=== PATIENT | female | born 1945 | race Caucasian/White ===

== ENCOUNTER 2016-10-22 09:19 | Emergency (ER) | payer MEDICARE, OTHER ==
[2016-10-22 09:28] VITALS: BP 152/75
--- NOTE | 2016-10-22 11:05 | UC ---
Minor Trauma HPI - HPI Summary HPI Summary: 2 days ago fell backward off a 6ft ledge in her yard-she was able to get her self up and continue to work---yesterday she was a bit sore and today the soreness in her back neck and jaw is worse - History of Current Complaint Chief Complaint: UCTrauma Stated Complaint: JAW INJURY Time Seen by Provider: 10/22/16 09:31 Hx Obtained From: Patient ?: No Onset/Duration: Sudden Onset, Lasting Days - 2, Worse Since - this morning Onset Of Pain: Post Accident - and worse 2 days later Severity Initially: Mild Severity Currently: Moderate Pain Intensity: 6 Pain Scale Used: 0-10 Numeric Mechanism Of Injury: Fall From Height Of: - 6 Aggravating Factor(s): Nothing Alleviating Factor(s): Nothing - Allergies/Home Medications Allergies/Adverse Reactions: Allergies Allergy/AdvReac Type Severity Reaction Status Date / Time No Known Allergies Allergy Verified 10/22/16 09:28 PMH/Surg Hx/FS Hx/Imm Hx Previously Healthy: Yes - Surgical History Surgical History: Yes Surgery Procedure, Year, and Place: LT ANKLE ACHILLES TENDON REPLACED 2002, RT KNEE ARTHROSCOPIC, RT WRIST, RT ELBOW ,TONSILS AGE 8, WISDOM TEETH REMOVED,1996 LEFT BREAST BIOPSY - Family History Known Family History: Positive: None - Social History Occupation: Retired Lives: With Family Alcohol Use: Rare Substance Use Type: None Smoking Status (MU): Never Smoked Tobacco Review of Systems Constitutional: Negative Skin: Negative Eyes: Negative ENT: Negative Respiratory: Negative Cardiovascular: Negative Gastrointestinal: Negative Genitourinary: Negative Motor: Negative Neurovascular: Negative Musculoskeletal: Negative, Myalgia - neck and and upper back Neurological: Negative Psychological: Negative All Other Systems Reviewed And Are Negative: Yes Physical Exam Triage Information Reviewed: Yes Appearance: Well-Appearing, No Pain Distress, Well-Nourished Vital Signs: Initial Vital Signs Temp 100.0 F 10/22/16 09:24 Pulse 75 10/22/16 09:24 Resp 18 10/22/16 09:24 BP 152/75 10/22/16 09:24 Pulse Ox 98 10/22/16 09:24 Vital Signs Reviewed: Yes Eye Exam: Normal Eyes: Positive: Conjunctiva Clear ENT Exam: Normal ENT: Positive: Normal ENT inspection, Hearing grossly normal, TMs normal. Negative: Nasal congestion, Nasal drainage, Tonsillar swelling, Tonsillar exudate, Trismus, Muffled/hoarse voice Dental Exam: Normal Neck exam: Normal Neck: Positive: Supple, Nontender, No Lymphadenopathy Respiratory Exam: Normal Respiratory: Positive: Chest non-tender, Lungs clear, Normal breath sounds, No respiratory distress, No accessory muscle use Cardiovascular Exam: Normal Cardiovascular: Positive: RRR, No Murmur, Pulses Normal, Brisk Capillary Refill Musculoskeletal Exam: Normal Musculoskeletal: Positive: Strength Intact, ROM Intact, No Edema Neurological Exam: Normal Neurological: Positive: Alert, Muscle Tone Normal Psychological Exam: Normal Skin Exam: Normal Diagnostics - Laboratory Diagnostic Studies Completed/Ordered: osteopenia, no fx, Minor Trauma Course/Dx - Course Course Of Treatment: ibuprofen, soma, ice, luis exercise, follow with pcp - Differential Dx/Diagnosis Differential Diagnosis/HQI/PQRI: Contusion(s), Dislocation, Sprain, Strain Provider Diagnoses: COntusions, muscle strain Discharge - Discharge Plan Condition: Stable Disposition: HOME Prescriptions: Carisoprodol TAB* [Soma TAB*] 175 - 350 mg PO TID PRN #10 tab MDD 3 PRN Reason: pain Ibuprofen TAB* [Motrin TAB* 600 MG] 600 mg PO Q6H PRN #30 tab PRN Reason: pain Patient Education Materials: Cervical Strain (ED), Muscle Strain (ED), Core Strengthening Exercises (GEN) Referrals: Kaley Naranjo MD [Primary Care Provider] - If Needed
--- NOTE | 2016-10-22 11:31 | RAD ---
HISTORY: Pain after fall COMPARISONS: None VIEWS: 8, Frontal, lateral, open-mouth odontoid, and bilateral oblique views of the cervical spine. FINDINGS: The cervical spine is visualized from the skull base through T1. ALIGNMENT: There is straightening of the normal cervical lordosis. VERTEBRAL BODIES: There is diffuse osteopenia. Is multilevel anterolateral marginal osteophyte formation most pronounced from C3-C4 inferiorly through C6-C7. There is suboptimal visualization of the odontoid process, though this appears intact. There is no appreciable displaced fracture. JOINTS: There is diffuse, extensive uncovertebral and facet osteoarthritic change. There is moderate diffuse neural foraminal narrowing on the oblique views bilaterally. INTERVERTEBRAL DISCS: There is diffuse loss of intervertebral disc height. SOFT TISSUE: The prevertebral soft tissues are normal. OTHER: The skull base is normal. The lung apices are clear. IMPRESSION: OSTEOPENIA. EXTENSIVE DISC DISEASE AND OSTEOARTHRITIS. NO DEFINITE ACUTE OSSEOUS INJURY. IF SYMPTOMS PERSIST, CONSIDER REPEAT IMAGING.
--- NOTE | 2016-10-22 11:31 | RAD ---
HISTORY: Pain after fall COMPARISONS: None VIEWS: 5, frontal, axial, and bilateral oblique views of the mandible FINDINGS: BONE DENSITY: Normal. BONES: There is no displaced fracture. JOINTS: There is no arthropathy. ALIGNMENT: There is no dislocation. SOFT TISSUES: Unremarkable. OTHER FINDINGS: None. IMPRESSION: NO ACUTE OSSEOUS INJURY. IF SYMPTOMS PERSIST, RECOMMEND REPEAT IMAGING.
--- NOTE | 2016-10-22 11:32 | RAD ---
HISTORY: Pain after fall COMPARISONS: None VIEWS: 2, Frontal and lateral views of the thoracic spine. FINDINGS: ALIGNMENT: There is a scoliotic curvature of the spine VERTEBRAL BODIES: There is diffuse osteopenia. There is multilevel anterolateral marginal osteophyte formation. The vertebral bodies are preserved in height. JOINTS: There is osteoarthritis of the costovertebral articulations INTERVERTEBRAL DISCS: There is diffuse loss of intervertebral disc height. SOFT TISSUE: Unremarkable OTHER: The visualized lungs are clear. IMPRESSION: OSTEOPENIA. DEGENERATIVE DISC DISEASE AND OSTEOARTHRITIS.
== END 2016-10-22 11:53 | disposition home or self-care (01) ==
LOC: UCEAST 09:19
DX: S16.1XXA Strain of muscle, fascia and tendon at neck level, initial encounter (principal); W17.89XA Other fall from one level to another, initial encounter; Y93.9 Activity, unspecified; Y92.096 Garden or yard of other non-institutional residence as the place of occurrence of the external cause; M85.88 Other specified disorders of bone density and structure, other site; M51.34 Other intervertebral disc degeneration, thoracic region
CPT/HCPCS: 70110; 72050; 72070; 99202; G0463

== ENCOUNTER 2017-04-28 10:09 | Inpatient (IN) | payer MEDICARE, OTHER ==
--- NOTE | 2017-04-17 18:58 | HP ---
HISTORY AND PHYSICAL: DATE OF OFFICE VISIT: 04/17/17 DATE OF SURGERY: 04/28/17 SURGEON: Shira Cardoso MD * (DICTATED BY ALBIN VILLEDA) PROCEDURE: Left total knee arthroplasty. CHIEF COMPLAINT: Left knee pain. HISTORY OF PRESENT ILLNESS: Ms. De Guzman is a 72-year-old female with complaints of left knee pain secondary to end-stage osteoarthritis. She has failed conservative management and elected to proceed with a left total knee arthroplasty, which is scheduled for 04/28/[address] Cardoso. PAST MEDICAL HISTORY: Hypertension. PAST SURGICAL HISTORY: Tonsillectomy, left knee arthroscopy, right elbow tendon release, left breast biopsy, de Quervain's release, removal of a skin keratosis, and Achilles tendon transfer. CURRENT MEDICATIONS: None. ALLERGIES: PENICILLIN and BAND-AIDS. FAMILY HISTORY: Diabetes and heart disease. SOCIAL HISTORY: She is a 72-year-old female. She lives with her sister. She does not smoke or use drugs. Uses occasional alcohol. REVIEW OF SYSTEMS: A complete 14-point review of systems was reviewed with the patient, it was all negative and noncontributory. PHYSICAL EXAMINATION GENERAL: She is well developed, well nourished, in no acute distress. VITAL SIGNS: She stands 5 feet tall, weighs 153 pounds. Her blood pressure is 157/82, her heart rate is 84. HEENT: Normocephalic, atraumatic. NECK: Supple. No palpable lymph nodes. PULMONARY: The lungs are clear to auscultation bilaterally. CARDIO: Regular rate and rhythm. Strong S1, S2. ABDOMEN: Soft, nontender, and nondistended. MUSCULOSKELETAL: Left lower extremity, the skin is intact. There are no open wounds or abrasions. There is a moderate joint effusion and tenderness over the medial and lateral joint line. 5 to 125 degrees of range of motion with patellofemoral crepitus. 2+ dorsalis pedis pulses. Her lower extremity muscle group strengths were intact at 5/5 and she has intact sensation. NEUROLOGICAL: She is alert and oriented x3. Cranial nerves II through XII are intact. ASSESSMENT AND PLAN: Ms. De Guzman is a 72-year-old female with continued complaints of left knee pain secondary to end-stage osteoarthritis. She has failed conservative management and elected to proceed with a left total knee arthroplasty which is scheduled for 04/28/[address] Cardoso discussed the risks and benefits of the surgery at today's visit and all of her questions were answered. Percocet and Colace were sent to her pharmacy for postoperative pain control. She has elected aspirin twice daily for DVT prophylaxis following the surgery and she will see Dr. Cardoso back in 2 weeks after the surgery. ALBIN VILLEDA [id number]/[facility] #: [id number] MTDD
[~2017-04-28 10:09] MED LIST: Buffered Lidocaine 0.9% SYRIN* 5 ML/SYR SYRINGE INTRADERM ONE; Dexamethasone IV* 4 MG/ML 1 ML (4 MG) IV SLOW PU ONE; Famotidine IV* 10 MG/ML 2 ML (20 mg) IV ONE
[2017-04-28] MEDS ORDERED: Dexamethasone IV* 4 MG/ML 1 ML (4 MG) ONE (10:20)
[2017-04-28] MEDS ORDERED: Famotidine IV* 10 MG/ML 2 ML (20 mg) ONE (10:21)
[2017-04-28] MEDS ORDERED: Buffered Lidocaine 0.9% SYRIN* 5 ML/SYR SYRINGE ONE (10:21)
[2017-04-28] MEDS ORDERED: Clindamycin 900 MG IVPREMIX(* 900 MG/50 ML SDV IV ONE (10:21)
[2017-04-28] MEDS ORDERED: Morphine PF AMP (0.5MG/ML)* 5 MG/10 ML AMP ONE (10:51)
[2017-04-28] MEDS ORDERED: KETAMINE HCL* 50 MG/ML 10 ML VIAL ONE (10:51)
[2017-04-28] MEDS ORDERED: Midazolam* 1 MG/ML 10 ML VIAL (10 MG) ONE (10:51)
[2017-04-28] MEDS ORDERED: Propofol* 10 MG/ML 20 ML BTL IV PUSH ONE (10:52)
[2017-04-28] MEDS ORDERED: Ondansetron INJ* 2 MG/ML VIAL ONE (10:52)
[2017-04-28] MEDS ORDERED: Bupivacaine 0.5% SDV PF* 30 ML VIAL ONE (10:53)
[2017-04-28] MEDS ORDERED: Naloxone* 0.4 MG/ML 1 ML VIAL IV PRN (12:45)
[2017-04-28] MEDS ORDERED: DiMENhydriNATE IV* 50 MG/ML VIAL IV PUSH PRN (12:45)
[2017-04-28] MEDS ORDERED: Nalbuphine* 20 MG/ML 1 ML VIAL IV PRN ×2 (12:45)
[2017-04-28] MEDS ORDERED: Ondansetron INJ* 2 MG/ML VIAL IV PRN (12:45)
[2017-04-28] MEDS ORDERED: oxyCODONE/Acetamin 5/325 MG* TAB PO PRN ×2 (12:45)
[2017-04-28] MEDS ORDERED: Ropivacaine* 300 MG in NS 0.9% 250 ML* 240 ML EPIDURAL SCH (13:00)
[2017-04-28] MEDS ORDERED: Scopolamine 1.5 mg* PATCH TRANSDERM SCH (13:00)
[2017-04-28] MEDS ORDERED: fentaNYL* 50 MCG/ML 2 ML VIAL (100 MCG VIAL) ONE (13:04)
[2017-04-28] MEDS ORDERED: Lidocaine 2% PF * 5 ML VIAL ONE (13:40)
[2017-04-28] MEDS ORDERED: Metoclopramide IV* 5 MG/ML 2 ML VIAL ONE (13:41)
[2017-04-28] MEDS ORDERED: Glycopyrrolate IV* 0.2 MG/ML 1 ML VIAL ONE (13:41)
[2017-04-28] MEDS ORDERED: Acetaminophen TAB* 325 MG PO PRN (14:30)
[2017-04-28] MEDS ORDERED: Polyethylene Glycol 3350* 17 GM PACKET PO PRN (14:30)
[2017-04-28] MEDS ORDERED: diPHENhydraMINE PO* 25 MG PO PRN (14:30)
--- NOTE | 2017-04-28 15:24 | RAD ---
INDICATION: Left knee surgery COMPARISON: February 27, 2017 TECHNIQUE: A portable 2 view examination was performed. FINDINGS: There is left knee arthroplasty. Both femoral and tibial components appear well seated. There is no overlying cooling jacket. A drain is in place. IMPRESSION: POSTOPERATIVE LEFT TOTAL KNEE
[2017-04-28] MEDS ORDERED: Warfarin TAB(*) 6 MG PO ONE (17:30)
[2017-04-28] MEDS: Clindamycin 600 MG IVPREMIX(* 600 MG/50 ML SDV IV SCH (19:59)
[2017-04-28] MEDS: Magnesium Hydroxide LIQ* 30 ML UDC PO SCH (20:00)
[2017-04-28] MEDS: Docusate CAP* 100 MG PO SCH (20:00)
[2017-04-29] MEDS: Clindamycin 600 MG IVPREMIX(* 600 MG/50 ML SDV IV SCH ×2 (03:22→11:58)
[2017-04-29 05:38] LABS: Hematocrit 31 % (35-47); Hemoglobin 10.6 g/dl (12.0-16.0); Mean Platelet Volume 8 um3 (7.4-10.4)
[2017-04-29 05:51] LABS: BUN/Creatinine Ratio 15.5 (8-20); Calcium 8.4 mg/dL (8.6-10.3); EGFR African American 104.7 (>60); EGFR Non-African American 81.4 (>60); Potassium 3.9 mmol/L (3.5-5.0)
[2017-04-29] MEDS ORDERED: HYDROcodone/ACETAMIN 5-325 MG* 1 TAB PO PRN (05:59)
[2017-04-29] MEDS ORDERED: Ondansetron INJ* 2 MG/ML VIAL IV PRN (06:00)
[2017-04-29] MEDS ORDERED: oxyCODONE/Acetamin 5/325 MG* TAB PO PRN ×2 (06:00)
[2017-04-29] MEDS ORDERED: Morphine INJ* 4 MG/ML 1 ML CARPUJECT IV PRN (06:00)
[2017-04-29] MEDS ORDERED: oxyCODONE TAB* 5 MG TAB PO PRN (06:00)
[2017-04-29] MEDS: HYDROcodone/ACETAMIN 5-325 MG* 1 TAB PO PRN ×3 (06:03→20:43)
--- NOTE | 2017-04-29 06:35 | OP ---
OPERATIVE REPORT: DATE OF OPERATION: 04/28/17 DATE OF : 49 ATTENDING SURGEON: Gregoria Cardoso MD JDE DEVELOPER: ALBIN Sloan Mr. Franks did help throughout the procedure with preparation of the leg, wound retraction, manipulat ion of the knee, and wound closure. ANESTHESIOLOGIST: Dr. Talley. ANESTHESIA: Spinal. PRE-OP DIAGNOSIS: Severe end-stage degenerative osteoarthritis of the left knee joint. POST-OP DIAGNOSIS: Severe end-stage degenerative osteoarthritis of the left knee joint. OPERATIVE PROCEDURE: Left total knee arthroplasty. TOURNIQUET TIME: 43 minutes. ESTIMATED BLOOD LOSS: 300 cc. COMPLICATIONS: None. SPECIMENS: Bone and cartilage from the left knee joint sent to Pathology. HARDWARE: All hardware was cemented [employer] total knee hardware. Two packages of Simplex b one cement. For the femur, a size 4 left posterior stabilized Legion femoral component. For the tib ia, a size 3 left Magalys II tibial base plate. For the insert, a 9 mm posterior stabilized articula r insert size 3-4, and for the patellar, a 32-mm 3-peg all poly patella thickness 7.5. BRIEF HISTORY/INDICATIONS: Ms. De Guzman is a 72-year-old female with years of increasingly severe left knee pain. Radiographs showed bone on bone arthritis. She failed conservative treatment with antiin flammatories, pain medications, physical therapy, and intraarticular injections. Due to continued pa in and decreased quality of life, she elected to undergo a left total knee arthroplasty. Informed con sent was obtained from the patient. She understood the risks of surgery included but were not limite d to bleeding, infection, damage to nearby structures, continued pain, need for further surgery, intr aoperative fracture, nerve palsy, hardware failure or loosening, knee stiffness, loss of motion, stro ke, heart attack, blood clot, and . She wished to proceed. INTRAOPERATIVE FINDINGS: Intraoperatively, the patient is noted to have severe end- stage arthritis in a tricompartmental fashion. There was complete loss of cartilage in all 3 compartments. DESCRIPTION OF PROCEDURE: Ms. De Guzman was identified in the preanesthesia unit. Her left lower extrem ity was marked as the correct operative site. Informed consent was signed and placed in the chart. The patient was taken to the operating room and placed under spinal anesthesia. A Trevizo catheter was placed. Tourniquet was placed on the left thigh. Left lower extremity was prepped and draped in th e usual sterile fashion. Preop time-out was made to correctly identify the patient side and site. A ppropriate perioperative antibiotics were given within 1 hour of incision. Tourniquet was inflated and a midline incision of 12 cm was made with a 10-blade. A new 10-blade was used to make a standard medial parapatellar arthrotomy. The patella was subluxed laterally. Electro cautery was used to subperiosteally elevate soft tissue off the superomedial tibia to the mid sagitta l plane. The knee was flexed up. The anterior horn of the lateral meniscus and ACL were sharply rel eased. A drill was used to enter the distal femur. Intramedullary distal femoral cutting guide was pinned on the distal femur. Oscillating saw was used to make the appropriate distal femoral cut. Ex ternal rotation guide was pinned on the distal femur. Distal femur was sized to a size 4. Size 4 mu lti cutting jig was pinned on the distal femur. Oscillating saw was used to make the appropriate 4 c hamfer cuts. The PCL was completely released. The tibia was subluxed anteriorly. Extramedullary tibial cutting gu romario was pinned on the proximal tibia. Oscillating saw was used to make a proximal tibial cut perpend icular to the mechanical axis of the tibia. The bone was carefully removed. The knee was brought ou t into full extension. Medial and lateral ligaments were well balanced. The spacer block had good fit. Flexion and extension gaps were well balanced. The knee was flexed up. Lamina guard captain was placed both medially and laterally. Any remaining menisc us was carefully removed using electrocautery. Curved osteotome was used to remove any posterior ost eophytes. Tibial tray and drop rods were placed to once again confirm a satisfactory tibial cut. Th is was confirmed. A size 4 left femoral trial was impacted on to the distal femur. Box cut osteotome and reamer were u sed to carefully remove bone for the posterior stabilized implant. A size 3 tibial tray and a 9-mm in sert trial were placed. The knee was taken through a range of motion. The knee had full extension t o 130 degrees of flexion with satisfactory patellofemoral tracking. The patella was everted. 7 mm of patellar bone and cartilage was carefully removed from the patella. The three peg holes were drilled through the size 32 guide. Trial 32 patellar was placed and the kn ee was taken through a range of motion. Patellofemoral tracking was satisfactory. All trials were carefully removed. The tibia was subluxed anteriorly and sized to a size 3. Proxima l tibia was prepared using a size 3 keel punch. All bony cut surfaces were copiously irrigated with sterile saline and dried. Final implants were cemented into place starting with the tibia followed b y the femur and last the patella. A 9-mm insert trial was placed and the knee was taken out into ful l extension. Cement was allowed to fully cure and tourniquet was turned down at 43 minutes. The kne e was copiously irrigated with sterile saline. Electrocautery was used to obtain meticulous hemostas is. The cement was allowed to fully cured. The insert trial was removed. Any cement around the implants or capsule was removed. A 9-mm posterior stabilized articular insert size 3-4 was locked into posit ion on the tibial tray. The stability was checked and rechecked and noted to be stable. The knee was once again copiously irrigated with sterile saline. The extensor mechanism was closed u sing interrupted #1 Vicryl over a medium Hemovac drain. The rest of the incision was closed in a lay ered fashion using 0 and 2-0 Vicryls. The skin was closed using running 3-0 nylon suture. Sterile X eroform, 4x4s, and Webril were used to cover the incision. Pradeep wrap and cold pack were placed over t his. The patient's anesthesia was reversed without difficulty. She was taken to the PACU in stable c ondition. Intended weight bearing will be weight bearing as tolerated. Intended DVT prophylaxis manuel l be Coumadin with a Lovenox bridge. [id number]/[facility] #: [id number]
[2017-04-29] MEDS: Magnesium Hydroxide LIQ* 30 ML UDC PO SCH ×2 (08:45→20:46)
[2017-04-29] MEDS: Docusate CAP* 100 MG PO SCH ×2 (08:45→20:46)
[2017-04-29] MEDS: Enoxaparin(*) 30 MG/0.3 ML SYR SUBCUT SCH (08:46)
[2017-04-29] MEDS: Morphine TAB Extended Release (*) 15 MG TAB.ER PO SCH ×2 (09:56→22:09)
--- NOTE | 2017-04-29 09:57 | PN ---
Progress Note - Progress Note Date of Service: 04/29/17 SOAP: Subjective: Pt. is alert, reports severe pain. Objective: LLE - drain removed, tip intact, distally nvi. Vital Signs: Temp Pulse Resp BP Pulse Ox 97.4 F 79 18 132/73 100 04/29/17 03:51 04/29/17 03:51 04/29/17 08:45 04/29/17 03:51 04/29/17 03:51 Laboratory Results - last 24 hr 04/29/17 04/29/17 04/29/17 05:17 05:17 05:17 Hgb 10.6 L Hct 31 L Plt Count 268 MPV 8 INR (Anticoag Therapy) 1.22 H Sodium 130 L Potassium 3.9 Chloride 97 L Carbon Dioxide 28 Anion Gap 5 BUN 11 Creatinine 0.71 Est GFR ( Amer) 104.7 Est GFR (Non-Af Amer) 81.4 BUN/Creatinine Ratio 15.5 Glucose 111 H Calcium 8.4 L Assessment: 72 yo F pod 1 s/p LTKA Plan: ER morphine 15 mg bid added for pain control wbat pt/ot 6 mg coumadin tonight, lovenox today plan d/c to home monday with snf
[2017-04-29] MEDS ORDERED: Warfarin TAB(*) 6 MG PO SCH (17:00)
[2017-04-29] MEDS: Aspirin TAB* 325 MG PO SCH (20:44)
[2017-04-30] MEDS: HYDROcodone/ACETAMIN 5-325 MG* 1 TAB PO PRN ×2 (04:37→14:42)
[2017-04-30 06:26] LABS: Hematocrit 29 % (35-47); Hemoglobin 9.9 g/dl (12.0-16.0); Mean Platelet Volume 8 um3 (7.4-10.4)
--- NOTE | 2017-04-30 08:53 | PN ---
Progress Note - Progress Note Date of Service: 04/30/17 SOAP: Subjective: Pt. is alert, pain controlled, wants to go home today. Objective: LLE - dressing changed, inc c/d/i. distally nvi. Vital Signs: Temp Pulse Resp BP Pulse Ox 97.2 F 60 18 127/67 96 04/30/17 04:11 04/30/17 04:11 04/30/17 07:07 04/30/17 04:11 04/30/17 07:07 Laboratory Results - last 24 hr 04/30/17 04/30/17 06:05 06:05 Hgb 9.9 L Hct 29 L Plt Count 220 MPV 8 INR (Anticoag Therapy) 1.32 H Assessment: 72 yo F pod 2 s/p LTKA Plan: wbat lle pt/ot home on ecasa bid 325 lovenox today before d/c plan d/c today with vns
[2017-04-30] MEDS: Morphine TAB Extended Release (*) 15 MG TAB.ER PO SCH (09:13)
[2017-04-30] MEDS: Aspirin TAB* 325 MG PO SCH (09:13)
[2017-04-30] MEDS: Docusate CAP* 100 MG PO SCH (09:13)
[2017-04-30] MEDS: Enoxaparin(*) 30 MG/0.3 ML SYR SUBCUT SCH (09:14)
[2017-04-30] MEDS: Magnesium Hydroxide LIQ* 30 ML UDC PO SCH (09:14)
[2017-04-30 11:40] VITALS: BP 123/56
[2017-05-01] MEDS ORDERED: Scopolamine PATCH Remove* 1 NOTE MISC PATCH OFF ONE (12:49)
== END 2017-04-30 14:45 | disposition home or self-care (01) | DRG 470 ==
LOC: AA 10:09 → SSU 17:03
PROVIDERS: ADMIT Orthopaedic Surgery Adult Reconstructive Orthopaedic Surgery; ATTEND Orthopaedic Surgery Adult Reconstructive Orthopaedic Surgery
PROC: 0SRD0J9 Replacement of Left Knee Joint with Synthetic Substitute, Cemented, Open Approach (ICD-10-PCS; principal; 2017-04-28 11:15)
DX: M17.12 Unilateral primary osteoarthritis, left knee (principal); I10 Essential (primary) hypertension; Z88.0 Allergy status to penicillin; Z91.048 Other nonmedicinal substance allergy status; Z83.3 Family history of diabetes mellitus; Z82.49 Family history of ischemic heart disease and other diseases of the circulatory system
CPT/HCPCS: 36415; 80048; 85014; 85018; 85049; 85610; A9270-GY; C1776; J1100; J1650; J2250; J2270; J2405; J2704; J2765; J2795; J3010

== ENCOUNTER 2017-12-05 13:00 | Inpatient (IN) | payer MEDICARE, OTHER ==
--- NOTE | 2018-03-07 16:16 | HP ---
AMENDED REPORT NOW INCLUDES DESIGNATED COSIGNER HISTORY AND PHYSICAL: DATE OF ADMISSION/SURGERY: 03/20/18 DATE OF OFFICE VISIT: 03/07/18 SURGEON: Gregoria Cardoso MD * (DICTATED YBALBIN FERRER) PROCEDURE: Right total knee arthroplasty. CHIEF COMPLAINT: Right knee pain. HISTORY OF PRESENT ILLNESS: Ms. De Guzman is a 73-year-old female with end-stage osteoarthritis of the right knee. She has failed conservative treatment and elected to proceed with a right total knee arthroplasty, which is scheduled for 03/20/18. PAST MEDICAL HISTORY: Hypertension. PAST SURGICAL HISTORY: Tonsillectomy, right knee arthroscopy, right elbow surgery, breast biopsy, right wrist de Quervain's release, Achilles tendon transfer left lower extremity and a left total knee arthroplasty. CURRENT MEDICATIONS: Losartan potassium 25 mg daily. ALLERGIES: To CLINDAMYCIN causing a rash, MELOXICAM, and PENICILLIN. FAMILY HISTORY: Dementia. SOCIAL HISTORY: She is a 73-year-old female. She lives with her sister. She does not smoke or use drugs. Uses occasional alcohol. REVIEW OF SYSTEMS: A complete 14-point review of systems was reviewed with the patient. It was all negative or noncontributory. PHYSICAL EXAMINATION GENERAL: She is well developed, well nourished, in no acute distress. VITAL SIGNS: She stands 5 feet tall, weighs 160 pounds. Her blood pressure is 140/88 and her heart rate is 96. HEENT: Normocephalic, atraumatic. NECK: Supple. No palpable lymph nodes. PULMONARY: The lungs are clear to auscultation bilaterally. CARDIO: Regular rate and rhythm. Strong S1, S2. ABDOMEN: Soft, nontender, nondistended. MUSCULOSKELETAL: Right lower extremity: The skin is intact. There are no open wounds or abrasions. She has a moderate joint effusion, some tenderness over the medial and lateral joint line. Range of motion is 5 to 130 degrees. She is distally neurovascularly intact. ASSESSMENT AND PLAN: Ms. De Guzman is a 73-year-old female with end-stage osteoarthritis of the right knee. She has failed conservative treatment and elected to proceed with a right total knee arthroplasty, which is scheduled for 03/20/[address] Cardoso discussed the risks and benefits of the surgery at today's visit and all of her questions were answered. She will follow up with Dr. Cardoso 2 weeks after the surgery. ALBIN VILLEDA [id number]/[facility] #: [id number] MTDCristi
[2018-03-19] MEDS ORDERED: Buffered Lidocaine 0.9% SYRIN* 5 ML/SYR SYRINGE INTRADERM ONE (11:45)
[2018-03-20] MEDS ORDERED: Tranexamic Acid 1,000 MG in NS 0.9% 50 ML* (outpatient use) IV SCH ×2
[2018-03-20] MEDS ORDERED: Famotidine IV* 10 MG/ML 2 ML (20 mg) IV ONE (06:00)
[2018-03-20] MEDS ORDERED: Dexamethasone IV* 4 MG/ML 1 ML (4 MG) IV SLOW PU ONE (06:00)
--- OUTSIDE RECORDS SUMMARY | 2018-03-20 12:38 | XMS REPORT ---
:1945 External Reference #:[id number] Author Organization [employer] Address [address] [place] [address] Phone [phone] Care Team Providers Name Role Phone Kaley Naranjo MD Primary Care Physician Unavailable Payers Type Date Identification Numbers Payment Provider Subscriber Medicare Primary Effective: Policy Number: Medicare Marian Hernandez 2012 [id number] PayID: [id number] [address] [place] [address] Medigap Part B Policy Number: [id number] [employer] Marian Hernandez Group Number: [id number] [address] PayID: [id number] [place] [address] Problems Date Description Provider Status Onset: 02/27/2017 Localized, primary osteoarthritis Gregoria Cardoso M.D. Active Onset: 09/06/2017 Arthroplasty of knee Gregoria Cardoso M.D. Active Onset: 09/06/2017 Sprain of medial collateral ligament of Gregroia Cardoso M.D. Active knee Family History Date Family Member(s) Problem(s) Comments General No Current Problems Social History Type Date Description Comments Lives With siblings Occupation Retired Smoking Patient has never smoked Allergies, Adverse Reactions, Alerts Date Description Reaction Status Severity Comments 02/27/2017 Penicillin active 02/27/2017 Bandaids active 10/31/2017 Clindamycin active Moderate red, itchy rash 01/31/2018 Meloxicam active Medications Medication Date Status Form Strength Qnty SIG Indications Ordering Provider Losartan 00/00/ Active Tablets 25mg Take 1 Unknown Potassium 0000 Tablet By Mouth Every Day Ibuprofen 200 05/10/ Hx Tablets 200mg 120tab 400mg Donell 2018 - s every 6 Keon, 01/30/ hours as M.D. 2018 needed for pain. Meloxicam 09/06/ Hx Tablets 15mg 30tabs 1 by Z47.1 Gregoria 2017 - mouth Walker, 10/03/ every M.D. 2018 day Gabapentin 05/17/ Hx Capsules 300mg 30caps 1 tab by M25.562 Gregoria 2017 - mouth Walker, 09/05/ before M.D. 2018 bed Ibuprofen 05/05/ Hx Tablets 600mg 90tabs take 1 Gregoria 2016 - tab by Walker, 09/05/ mouth M.D. 2017 with food 3 times a day as needed pain Cyclobenzaprine 05/05/ Hx Tablets 10mg 90tabs take 1 Gregoria HCL 2016 - tab by Walker, 09/05/ mouth M.D. 2018 2-3 times a day as needed [place] 04/30/ Hx Tablets 5-325mg 60tabs 1 by Gregoria 2016 - mouth Walker, 10/03/ every 4 M.D. 2018 to 6 hours as needed MS Contin 04/30/ Hx Tablets ER 15mg 14tabs 1 by Gregoria 2016 - mouth Walker, 09/05/ twice a M.D. 2018 day Percocet 04/17/ Hx Tablets 5-325mg 90tabs 1-2 by Gregoria 2016 - mouth Walker, 04/30/ every M.D. 2017 4-6 hours as needed pain Colace 04/17/ Hx Capsules 100mg 90caps 1 tab by Gregoria 2016 - mouth Walker, 09/05/ 2-3 M.D. 2018 times a day as needed No Active Hx Unknown Medications 2016 - 2016 Compression 02/27/ Hx Misc 1units - M79.605 Gregoria Stockings 2016 - lle Walker, 03/28/ swelling M.D. 2016 /edema s/p L swelling - need thigh high No Active 02/27/ Hx Unknown Medications 2016 - 2016 Aspirin / Hx Unknown - 2016 Advil / Hx Unknown - 2016 Aspirin / Hx Unknown 0000 - 2017 Cozaar / Hx Unknown 0000 - 2017 Cay[place] / Hx Unknown - 2017 Lisinopril / Hx Unknown - 2017 Vital Signs Date Vital Result Comment 03/07/2018 Height 60 inches 5'0" Weight 161.00 lb Heart Rate 96 /min BP Systolic 140 mmHg BP Diastolic 88 mmHg BMI (Body Mass Index) 31.4 kg/m2 01/31/2018 Height 60 inches 5'0" Weight 152.00 lb Heart Rate 68 /min BP Systolic 176 mmHg BP Diastolic 90 mmHg BMI (Body Mass Index) 29.7 kg/m2 10/18/2017 Height 61 inches 5'1" Weight 149.00 lb Heart Rate 80 /min BP Systolic 149 mmHg BP Diastolic 90 mmHg BMI (Body Mass Index) 28.2 kg/m2 10/04/2017 Height 60 inches 5'0" Weight 149.00 lb BP Systolic 162 mmHg BP Diastolic 98 mmHg Body Temperature 98.5 F BMI (Body Mass Index) 29.1 kg/m2 09/06/2017 Height 60 inches 5'0" Weight 155.00 lb BP Systolic 158 mmHg BP Diastolic 98 mmHg Body Temperature 98.0 F BMI (Body Mass Index) 30.3 kg/m2 07/26/2017 Height 60 inches 5'0" Weight 152.00 lb BP Systolic 132 mmHg BP Diastolic 82 mmHg Respiratory Rate 16 /min Pain Level 4 BMI (Body Mass Index) 29.7 kg/m2 06/14/2017 Height 60 inches 5'0" Weight 150.00 lb Heart Rate 81 /min BP Systolic 185 mmHg BP Diastolic 85 mmHg Respiratory Rate 16 /min BMI (Body Mass Index) 29.3 kg/m2 05/17/2017 Height 60 inches 5'0" Weight 152.00 lb per pt Heart Rate 82 /min reg BP Systolic Sitting 170 mmHg Lue, reg cuff BP Diastolic Sitting 100 mmHg Lue, reg cuff Respiratory Rate 16 /min Pain Level 4 left knee BMI (Body Mass Index) 29.7 kg/m2 05/09/2017 Height 60 inches 5'0" Weight 152.00 lb Heart Rate 62 /min Respiratory Rate 15 /min Body Temperature 97.6 F Pain Level 2 BMI (Body Mass Index) 29.7 kg/m2 05/05/2017 Height 60 inches 5'0" Weight 152.00 lb BP Systolic 140 mmHg BP Diastolic 84 mmHg Body Temperature 97.8 F BMI (Body Mass Index) 29.7 kg/m2 04/17/2017 Height 60 inches 5'0" Weight 153.00 lb Heart Rate 84 /min BP Systolic 157 mmHg BP Diastolic 82 mmHg Body Temperature 98.3 F BMI (Body Mass Index) 29.9 kg/m2 03/29/2017 Height 61.5 inches 5'1.50" Weight 152.00 lb BP Systolic 158 mmHg BP Diastolic 82 mmHg Body Temperature 97.7 F BMI (Body Mass Index) 28.3 kg/m2 03/15/2017 Height 61 inches 5'1" Weight 152.00 lb Heart Rate 77 /min BP Systolic 181 mmHg BP Diastolic 92 mmHg BMI (Body Mass Index) 28.7 kg/m2 02/27/2017 Height 61 inches 5'1" Weight 150.00 lb Heart Rate 76 /min BP Systolic 143 mmHg BP Diastolic 92 mmHg Body Temperature 97.8 F Pain Level 8 BMI (Body Mass Index) 28.3 kg/m2 Results Test Date Test Result H/L Range Note CBC No Diff 04/17/2017 White Blood Count 8.4 10^3/uL 3.5-10.8 Red Blood Count 4.67 10^6/uL 4.0-5.4 Hemoglobin 13.9 g/dL 12.0-16.0 Hematocrit 41 % 35-47 Mean Corpuscular Volume 89 fL 80-97 Mean Corpuscular Hemoglobin 30 pg 27-31 Mean Corpuscular HGB Conc 34 g/dL 31-36 Red Cell Distribution Width 15 % 10.5-15 Platelet Count 239 10^3/uL 150-450 Mean Platelet Volume 9 um3 7.4-10.4 Urinalysis Profile 04/17/2017 Urine Color Yellow Urine Appearance Clear Urine Specific [place] 1.015 1.010-1.030 Urine pH 5.0 5-9 Urine Urobilinogen Negative Negative Urine Ketones Trace Negative Urine Protein Negative Negative Urine Leukocytes Negative Negative Urine Blood Negative Negative Urine Nitrite Negative Negative Urine Bilirubin Negative Negative Urine Glucose Negative Negative Type & Screen 04/17/2017 Patient Blood Type A Positive Antibody Screen NEGATIVE Comp Metabolic Panel 04/17/2017 Sodium 137 mmol/L 133-145 Potassium 3.9 mmol/L 3.5-5.0 Chloride 101 mmol/L 101-111 Co2 Carbon Dioxide 28 mmol/L 22-32 Anion Gap 8 mmol/L 2-11 Glucose 87 mg/dL 70-100 Blood Urea Nitrogen 15 mg/dL 6-24 Creatinine 0.76 mg/dL 0.51-0.95 BUN/Creatinine Ratio 19.7 8-20 Calcium 9.2 mg/dL 8.6-10.3 Total Protein 7.7 g/dL 6.4-8.9 Albumin 4.3 g/dL 3.2-5.2 Globulin 3.4 g/dL 2-4 Albumin/Globulin Ratio 1.3 1-3 Total Bilirubin 0.50 mg/dL 0.2-1.0 Alkaline Phosphatase 77 U/L 34-104 Alt 16 U/L 7-52 Ast 19 U/L 13-39 Egfr Non- 75.2 >60 Egfr 96.8 >60 1 Laboratory test finding 04/17/2017 TSH (Thyroid Stim 2.72 mcIU/mL 0.34- 5.60 Horm) Inr/Protime 04/17/2017 Inr 0.94 0.77-1.02 2 Laboratory test finding 04/17/2017 Partial Thrombo 30.5 seconds 26.0- 36.3 Time PTT Urine Culture And 04/17/2017 Urine Culture SEE RESULT BELOW 3 Sensitivities 1 Because ethnic data is not always readily available, this report includes an eGFR for both -Americans and non- Americans. The National Kidney Disease Education Program (NKDEP) does not endorse the use of the MDRD equation for patients that are not between the ages of 18 and 70, are , have extremes of body size, muscle mass, or nutritional status, or are non- or non-. According to the National Kidney Foundation, irrespective of diagnosis, the stage of the disease is based on the level of kidney function: Stage Description GFR(mL/min/1.73 m(2)) 1 Kidney damage with normal or decreased GFR 90 2 Kidney damage with mild decrease in GFR 60-89 3 Moderate decrease in GFR 30-59 4 Severe decrease in GFR 15-29 5 Kidney failure <15 (or dialysis) 2 Please note the change in INR reference range effective 17. 3 SEE RESULT BELOW Name: MARIAN HERNANDEZ : [address]: Gregoria Cardoso MD Acct: [id number] Unit: [id number] AGE: 72 Location: PAT Re04/17/17 SEX: F Status: REG REF SPEC: [id number] [place]: 04/17/17-[address] [facility] [address]: Gregoria Cardoso MD REQ: [id number] RECD: 04/17/17 STATUS: COMP _ SOURCE: URINE SPDESC: ORDERED: Urine Culture QUERIES: Urine Source: Clean Catch Procedure Result Reported Site Urine Culture Final 04/19/17- 0907 ML No growth of clinically significant organisms * ML - MAIN LAB ([facility]) . END OF REPORT * ML=Testing performed at Main Lab DEPARTMENT OF PATHOLOGY, [address] [place] [address] Sahlom Quach M.D. Director [facility] # [id number] Procedures Date CPT Code Description Status Comment 04/28/2017 34083 TKR Total Knee Replacement Completed 04/28/2017 69716 TKR Total Knee Replacement Completed 04/17/2017 62762 EKG, Interpretation Only Completed 01/08/2013 11300 Rad Exam; Wrist, Comp, Min 3 Views Completed LT Encounters Type Date Location Provider CPT E/M Dx Office Visit 01/31/2018 [facility] Gregoria Cardoso M.D. 07866 M25.561 10:30a Of Amanda M25.461 M17.11 Office Visit 10/18/2017 10:00a [facility] Cardoso M.D. 17852 M25.561 C.MMarieAMarie M25.461 M17.11 Office Visit 10/04/2017 9:15a [facility] Cardoso M.D. 80637 Z47.1 [facility] Z96.652 M25.562 S83.412A Office Visit 09/06/2017 9:45a [facility] Greg[facility] Cardoso M.D. 76959 M25.562 C.M.AMarie Z47.1 Z96.652 S83.412A Office Visit 03/29/2017 11:00a [facility] Cardoso M.D. 74874 M25.562 CMarieMMarieAMarie M25.462 M17.12 M25.561 M25.461 M17.11 Office Visit 03/15/2017 11:30a [facility] Cardoso M.D. 13492 M25.562 Amanda M25.462 M17.12 S83.242A Office Visit 02/27/2017 10:30a [facility] Cardoso M.D. 20157 M25.562 Amanda M25.462 M79.605 M17.12 Office Visit 01/08/2013 9:00a [facility] Brenna Gamb[place], [address]286 719.43 Of Amanda Ziegler Plan of Care Future Appointment(s):03/30/2018 9:15 am - Gregoria Cardoso M.D. at [facility]03/20/2018 9:30 am - Gregoria Cardoso M.D. at [facility]03/07/2018 - Gregoria Cardoso M.D.M25.561 Pain in right kneeFollow up:Follow up: 2 weeks after [id number] Effusion, right kneeM17.11 Unilateral primary osteoarthritis, right knee
[2018-03-20] MEDS ORDERED: fentaNYL* 50 MCG/ML 2 ML VIAL (100 MCG VIAL) ONE (12:42)
[2018-03-20] MEDS ORDERED: Midazolam* 1 MG/ML 2 ML VIAL (2 MG) ONE (12:42)
[2018-03-20] MEDS ORDERED: Lidocaine 2% PF * 5 ML VIAL ONE ×2 (12:46→17:17)
[2018-03-20] MEDS ORDERED: Propofol* 10 MG/ML 20 ML BTL IV PUSH ONE ×2 (12:46→17:22)
[2018-03-20] MEDS ORDERED: Dexamethasone IV* 4 MG/ML 1 ML (4 MG) ONE (12:47)
[2018-03-20] MEDS ORDERED: Famotidine IV* 10 MG/ML 2 ML (20 mg) ONE (12:47)
[2018-03-20] MEDS ORDERED: Vancomycin(*) 1,000 MG in NS 0.9% 250 ML* 250 ML IVPB ONE (15:00)
[2018-03-20] MEDS ORDERED: Bupivacaine 0.5% SDV PF* 30ML VIAL ONE (15:00)
[2018-03-20] MEDS ORDERED: Cyclobenzaprine TAB* 10 MG PO PRN (17:08)
[2018-03-20] MEDS ORDERED: Ondansetron ODT TAB* 4 MG PO PRN (17:08)
[2018-03-20] MEDS ORDERED: Bisacodyl SUPP* 10 MG SUPP PR PRN (17:08)
[2018-03-20] MEDS ORDERED: Ondansetron INJ* 2 MG/ML VIAL IV PRN (17:08)
[2018-03-20] MEDS ORDERED: traMADol TAB* 50 MG PO PRN (17:08)
[2018-03-20] MEDS ORDERED: Polyethylene Glycol 3350* 17 GM PACKET PO PRN (17:08)
[2018-03-20] MEDS ORDERED: diPHENhydraMINE PO* 25 MG PO PRN (17:08)
[2018-03-20] MEDS ORDERED: diPHENhydraMINE IV* 50 MG/ML 1 ml VIAL (BENADRYL) IV PRN (17:08)
[2018-03-20] MEDS ORDERED: oxyCODONE/Acetamin 5/325 MG* TAB PO PRN (17:08)
[2018-03-20] MEDS ORDERED: Magnesium Hydroxide LIQ* 30 ML UDC PO PRN (17:08)
[2018-03-20] MEDS ORDERED: Bupivacaine-MPF SPINAL* 7.5 MG/ML - 2ML AMP ONE (17:17)
[2018-03-20] MEDS ORDERED: Warfarin TAB(*) 6 MG PO ONE (21:00)
[2018-03-20] MEDS: Magnesium Oxide TAB* 400 MG PO SCH (21:05)
[2018-03-20] MEDS: Docusate CAP* 100 MG PO SCH (21:05)
[2018-03-20] MEDS: Magnesium Hydroxide LIQ* 30 ML UDC PO SCH (21:06)
[2018-03-20] MEDS: oxyCODONE TAB* 5 MG TAB PO PRN (21:18)
[2018-03-20] MEDS: Morphine VIAL* 4 MG/ML VIAL (1 ml vial) IV PRN (22:34)
[2018-03-20] MEDS: Acetaminophen TAB* 325 MG PO SCH (22:44)
--- NOTE | 2018-03-20 22:50 | CONS ---
CC: Dr. Kaley Naranjo; Dr. Gregoria Cardoso * [facility] MEDICINE CONSULTATION REPORT: DATE OF CONSULT: 03/20/18 PRIMARY CARE PROVIDER: Dr. Kaley Naranjo. REQUESTING PHYSICIAN IN CONSULT: Dr. Gregoria Cardoso. ATTENDING PHYSICIAN: Dr. Maura Andrade. REASON FOR CONSULT: Hypertension. HISTORY OF PRESENT ILLNESS: Ms. De Guzman is a 73-year-old female with history of hypertension and right knee osteoarthritis, who presented to [facility] on 03/20/18 for an elective total right knee arthroplasty. I will refer you to ALBIN Mortensen's history and physical dictated on 03/07/18 for complete details. Ms. De Guzman reports that she has typically been active, though recently has had difficulty with activity because of her right knee pain. She reports that the pain is essentially nonexistent when she is not bending her knee, but she has significant pain with bending; hence, she has not been able to perform difficult activities like walking long distances, which she once was though she does try to stay active. Ms. De Guzman reports that she only developed hypertension approximately 1 year ago after her last surgery, she reports that her blood pressure started to increase slowly and she was subsequently placed on losartan by her primary care provider. She has done well on the losartan, has had no side effects, and appears to be well managed at baseline according to the patient and office notes from her PCP. PAST MEDICAL HISTORY: 1. Hypertension. 2. Osteoarthritis. PAST SURGICAL HISTORY: 1. Tonsillectomy. 2. Right knee arthroscopy. 3. Right elbow surgery. 4. Right wrist de Quervain's release. 5. Achilles tendon transfer on the left lower extremity. 6. Left total knee arthroplasty. HOME MEDICATIONS: 1. Aspirin 325 mg p.o. b.i.d. p.r.n. 2. AlgaeCal supplement 2 caps p.o. daily. 3. Calcium, magnesium, zinc 1 tab p.o. daily. 4. Vitamin D3 2000 units p.o. daily. 5. Kelp 100 mg p.o. daily. 6. Losartan 25 mg p.o. daily. 7. Magnesium oxide 800 mg p.o. b.i.d. 8. Vitamin K2 100 mcg p.o. daily. 9. Milk Thistle 300 mg p.o. daily. 10. Women's Multivitamin 1 tab p.o. daily. 11. Psyllium 0.4 g p.o. daily p.r.n. 12. Selenium 400 mcg p.o. daily. 13. CoQ10 30 mg p.o. daily. 14. Zinc 15 mg p.o. daily. ALLERGIES: PENICILLIN, CLINDAMYCIN, and MELOXICAM. FAMILY HISTORY: She reports her father at the age of 97, he had CHF and kidney disease. Her mother in her 70s, she had CHF and alcohol abuse. No family history of cancer, diabetes, or coronary artery disease. SOCIAL HISTORY: She denies any tobacco or recreational drug use. She reports approximately 1 alcoholic drink a day, usually wine with dinner. She lives with her sister, who would be her surrogate decision maker. REVIEW OF SYSTEMS: An 11-point review of systems was performed and all pertinent positive and negative findings are in the HPI, all other systems are negative. PHYSICAL EXAM: General: Ms. De Guzman is a well-developed, well-nourished overweight white woman, lying in bed, in no acute distress. She appears her stated age. Vital Signs: Temp 97.9, heart rate 71, respiratory rate 16, oxygen saturation 97% on 2 L, blood pressure 128/69. HEENT: Head is atraumatic, normocephalic. Visual malhotra are grossly intact. Pupils equal, round, and reactive to light and accommodation. Mucous membranes are moist. Neck: Thyroid not palpable. Trachea midline. No lymphadenopathy. Respiratory: Symmetrical chest expansion. No chest wall deformities. Lungs: Clear to auscultation throughout. No rhonchi, wheezes, or rales. Cardiovascular: Regular rate and rhythm. S1, S2 present. No murmurs, rubs, or gallops. No JVD. Extremities: Skin warm and smooth bilaterally. No edema. Pedal pulses 2 + bilaterally. Abdomen: Soft, nontender to palpation. Bowel sounds normoactive throughout. Neuro: Awake, alert, and oriented x4. Cranial nerves II through XII grossly intact. DIAGNOSTIC STUDIES/LAB DATA: She had most recent labs on 03/07/18. WBC 6.6, RBC 4.65, hemoglobin 14.8, hematocrit 43, platelets 254. INR 0.92. Sodium 141 , potassium 4.2, chloride 102, carbon dioxide 31, BUN 21, creatinine 0.85, glucose 95. TSH 2.72. Urinalysis unremarkable. She had a chest x-ray on 03/07/18, which showed hyperinflation consistent with COPD. There is no active cardiopulmonary disease. ASSESSMENT AND PLAN: Ms. De Guzman is a 73-year-old female with past medical history of hypertension, who presented to [facility] today for an elective right total knee arthroplasty. The patient will be admitted under the orthopedic service for: 1. Right knee total arthroplasty. Management per Ortho. 2. Hypertension. The patient is currently normotensive in the PACU. It sounds as though she has done well on her losartan for the past year. I would recommend holding losartan for 2 days postoperatively to avoid acute kidney injury or hypotension and it can then be resumed as long as she is not hypotensive. 3. Code status. The patient is a full code. 4. DVT prophylaxis per Ortho. Thank you for this consultation. We will sign off at this time, but please do not hesitate to call with any questions. TIME SPENT: Approximately 30 minutes was spent on this consultation, greater than half of that time spent with the patient obtaining my history and performing my physical exam and reviewing the plan of care. This case has been reviewed with my attending, Dr. Andrade, who is in agreement with the plan of care. REUBEN RAMEY NP [id number]/[facility] #: [id number] NOHELIA
[2018-03-21] MEDS: Morphine VIAL* 4 MG/ML VIAL (1 ml vial) IV PRN ×4 (00:35→07:57)
[2018-03-21] MEDS: HYDROcodone/ACETAMIN 5-325 MG* 1 TAB PO PRN ×7 (02:41→21:26)
[2018-03-21] MEDS ORDERED: Vancomycin(*) 1,000 MG in NS 0.9% 250 ML* 250 ML IVPB ONE (04:00)
[2018-03-21] MEDS: oxyCODONE TAB* 5 MG TAB PO PRN (04:21)
[2018-03-21] MEDS: Acetaminophen TAB* 325 MG PO SCH ×3 (06:16→21:44)
[2018-03-21 07:08] LABS: Hematocrit 35 % (35-47); Hemoglobin 12.1 g/dl (12.0-16.0); Mean Platelet Volume 8.2 fL (7.4-10.4); Platelet Count 221 10^3/ul (150-450)
[2018-03-21 07:24] LABS: INR 0.99 (0.77-1.02)
[2018-03-21 07:28] LABS: EGFR Non-African American 73.9 (>60)
[2018-03-21] MEDS: Magnesium Oxide TAB* 400 MG PO SCH ×2 (08:00→21:45)
[2018-03-21] MEDS: Docusate CAP* 100 MG PO SCH ×2 (08:00→21:44)
[2018-03-21] MEDS: Magnesium Hydroxide LIQ* 30 ML UDC PO SCH ×2 (08:00→21:44)
[2018-03-21] MEDS: Losartan TAB* 25 MG PO SCH (08:00)
--- NOTE | 2018-03-21 11:05 | PN ---
Progress Note - Progress Note Date of Service: 03/21/18 SOAP: Subjective: []Patient seen and examined at bedside. She had difficulty with pain overnight and request 2 tabs norco q 4 hr for pain control, which was ordered for her. She denies CP, SOB, dizziness, nausea. Objective: []General: Well appearing, NAD RLE: Right knee dressing CDI with cryo unit in use. Thigh is soft, DF/PF intact , DP2+, sensation intact distally, capillary refill less than two seconds distally, Calves supple and nontender without erythema, edema or palpable cords Assessment: []POD 1 sp Right total knee arthroplasty Plan: []WBAT PT/OT lovenox, coumadin 8 mg today Vital Signs Temp 97.3 F 03/21/18 07:17 Pulse 69 03/21/18 07:17 Resp 18 03/21/18 10:13 BP 130/64 03/21/18 07:17 Pulse Ox 98 03/21/18 08:00 Intake & Output 03/20/18 03/21/18 03/21/18 18:59 06:59 18:59 Intake Total 8121 557 4100 Output Total 550 1050 Balance 700 -350 1591 Weight 158 lb Intake: IV Fluids 1250 1231 ABX - VANCOMYCIN 260 LR 1250 971 Oral 700 360 Output: Trevizo 400 1050 Estimated Blood Loss 150 Other: # Bowel Movements 0 Laboratory Last Values Hgb 12.1 g/dl (12.0-16.0) 03/21/18 06:47 Hct 35 % (35-47) 03/21/18 06:47 Plt Count 221 10^3/ul (150-450) 03/21/18 06:47 MPV 8.2 fL (7.4-10.4) 03/21/18 06:47 INR (Anticoag Therapy) 0.99 (0.77-1.02) 03/21/18 06:47 Sodium 137 mmol/L (135-145) 03/21/18 06:47 Potassium 4.1 mmol/L (3.5-5.0) 03/21/18 06:47 Chloride 103 mmol/L (101-111) 03/21/18 06:47 Carbon Dioxide 29 mmol/L (22-32) 03/21/18 06:47 Anion Gap 5 mmol/L (2-11) 03/21/18 06:47 BUN 17 mg/dL (6-24) 03/21/18 06:47 Creatinine 0.77 mg/dL (0.51-0.95) 11 06:47 Est GFR ( Amer) 89.4 (>60) 03/21/18 06:47 Est GFR (Non-Af Amer) 73.9 (>60) 03/21/18 06:47 BUN/Creatinine Ratio 22.1 (8-20) H 03/21/18 06:47 Glucose 116 mg/dL (70-100) H 03/21/18 06:47 Calcium 8.6 mg/dL (8.6-10.3) 03/21/18 06:47
[2018-03-21] MEDS ORDERED: Warfarin TAB(*) 4 MG PO ONE (17:00)
[2018-03-21] MEDS: Enoxaparin(*) 30 MG/0.3 ML SYR SUBCUT SCH (17:21)
[2018-03-22] MEDS: HYDROcodone/ACETAMIN 5-325 MG* 1 TAB PO PRN ×3 (01:29→10:09)
[2018-03-22] MEDS: Acetaminophen TAB* 325 MG PO SCH (04:58)
[2018-03-22 06:32] LABS: Hematocrit 33 % (35-47); Hemoglobin 11.4 g/dl (12.0-16.0); Mean Platelet Volume 8.5 fL (7.4-10.4); Platelet Count 181 10^3/ul (150-450)
[2018-03-22 06:43] LABS: INR 1.7 (0.77-1.02)
--- NOTE | 2018-03-22 07:11 | OP ---
DATE OF OPERATION: 03/20/18 - ROOM #346 DATE OF : 49 SURGEON: Gregoria Cardoso MD. METAL TILE LATHER: ALBIN Castle. Laviniarodger did help throughout the procedure with preparation of the leg, wound retraction, manipulation of the knee, and wound closure. ANESTHESIOLOGIST: Dr. Emanuel ANESTHESIA: Spinal. PRE-OP DIAGNOSIS: Severe endstage degenerative osteoarthritis of the right knee joint. POST-OP DIAGNOSIS: Severe endstage degenerative osteoarthritis of the right knee joint. OPERATIVE PROCEDURE: Right total knee arthroplasty. TOTAL TOURNIQUET TIME: 44 minutes. COMPLICATIONS: None. ESTIMATED BLOOD LOSS: 200 cc. SPECIMEN: Bone and cartilage from the right knee joint sent to Pathology. HARDWARE USED: This is cemented [employer] total knee arthroplasty hardware. For this, two packages of Simplex bone cement. For the femur, a size 4 right posterior stabilized Legion femoral component. For the tibia, a size 3, Magalys II right tibial base plate. For the insert, a 9-mm posterior stabilized articular insert, size 3-4 and for the patella, a 32-mm 3 peg all poly patella with 7.5 thickness. BRIEF HISTORY AND INDICATIONS: Ms. De Guzman is a 73-year-old female with years of intermittent and increasingly severe right knee pain. Her radiographs showed advanced arthritis. She failed conservative treatment with antiinflammatories, pain medications, physical therapy and intraarticular injection,. Due to continued pain and decreased quality of life, she elected to undergo right total knee arthroplasty. Informed consent was obtained from the patient. She understood the risks of surgery included, but were not limited to, bleeding, infection, damage to nearby structures, continued pain, need for further surgery, intraoperative fracture, nerve palsy, hardware failure or loosening, knee stiffness, loss of motion, stroke, heart attack, blood clot, and . She wished to proceed. INTRAOPERATIVE FINDINGS: Intraoperatively, the patient was noted to have severe endstage arthritis of the medial and patellofemoral compartments with complete loss of cartilage. DESCRIPTION OF PROCEDURE: Ms. De Guzman was identified in the preanesthesia unit. Her right lower extremity was marked as the correct operative side. Informed consent was signed and placed in the chart. The patient was taken to the operating room and placed under spinal anesthesia. A Trevizo catheter was placed. Tourniquet was placed on the right thigh. Right lower extremity was prepped and draped in the usual sterile fashion. Preop time-out was made to correctly identify the patient's side and site. Appropriate perioperative antibiotics were given within 1 hour of incision. Tourniquet was inflated and total tourniquet time for this procedure was 44 minutes. A midline incision was made with a 10 blade and carried down to the extensor mechanism. A new 10 blade was used to make a standard medial parapatellar arthrotomy. Patella was subluxed laterally. Electrocautery was used to subperiosteally elevate the soft tissue off the superomedial tibia to the mid sagittal plane. The knee was flexed up. The anterior horn of the lateral meniscus and ACL were sharply released. A drill was used to enter the distal femur. Intramedullary distal femoral cutting guide was pinned on the distal femur. An oscillating saw was used to make the distal femoral cut. The external rotation guide was pinned on the distal femur. The distal femur was sized to a size 4. A size 4 multi-cutting jig was pinned on the distal femur. Oscillating saw was used to make the appropriate 4 chamfer cuts. The PCL was completely released and tibia was subluxed anteriorly. Extramedullary tibial cutting guide was pinned on the proximal tibia. Proximal tibial cut was made with an oscillating saw perpendicular to the mechanical axis of the tibia. The bone was carefully removed. The knee was brought into the full extension. The spacer block had good fit with the knee in full extension. Medial and lateral ligaments were well balanced. Flexion extension gaps were well balanced. The knee was flexed up. Lamina department chair was placed both medially and laterally. Any remaining meniscus was carefully removed using electrocautery. Curved osteotome was used to remove any posterior osteophytes. Tibial tray and drop ekta were placed and confirmed a satisfactory tibial cut. A size 4 right femoral trial was impacted on to the distal femur and had excellent fit. The box for the posterior stabilized implant was prepared using a reamer and box cut osteotome. A size 3 tibial tray trial with a 9-mm insert trial was placed and the knee was taken through a range of motion. The knee had full extension to 130 degrees of flexion. There was satisfactory patellofemoral tracking. The patella was everted. 7 mm of patellar bone and cartilage was carefully removed using an oscillating saw. The patella was sized to a size 32. A 32 trial patella with a 7.5 thickness was chosen. The knee was taken through a range of motion and there was satisfactory patellofemoral tracking. All trials were carefully removed. The tibia was subluxed anteriorly and sized to a size 3. Proximal tibia was prepared using a size 3 keel punch. All bony cut surfaces were copiously irrigated with sterile saline and dried. Final implants were cemented into place starting with the tibia followed by the femur and lastly the patella. A 9-mm insert trial was placed and the knee was brought into full extension. The knee was copiously irrigated. The tourniquet was turned down at 44 minutes. Electrocautery was used to obtain meticulous hemostasis. Once the cement had fully cured, the insert trial was removed. Any excess cement was removed from around the capsule and hardware. Final insert chosen was a 9-mm posterior stabilized articular insert, size 3-4. This was locked into position on the tibial tray. Stability of the insert was checked and rechecked and noted to be stable. The extensor mechanism was closed using interrupted #1 Vicryls. The rest of the incisions were closed in layered fashion using 0 and 2-0 Vicryls. The skin was closed using running 3-0 nylon suture. Sterile Xeroform, 4x4s, and Webril were used to cover the incision. The patient's anesthesia was reversed without difficulty. She was taken to the PACU in stable condition. Intended weightbearing will be weightbearing as tolerated. Intended DVT prophylaxis will be Coumadin with a Lovenox bridge. [id number]/[facility] #: [id number] NOHELIA
[2018-03-22] MEDS: Magnesium Hydroxide LIQ* 30 ML UDC PO SCH (08:20)
[2018-03-22] MEDS: Docusate CAP* 100 MG PO SCH (08:20)
[2018-03-22] MEDS: Magnesium Oxide TAB* 400 MG PO SCH (08:23)
[2018-03-22] MEDS: Losartan TAB* 25 MG PO SCH (08:23)
--- NOTE | 2018-03-22 09:58 | PN ---
Progress Note - Progress Note Date of Service: 03/22/18 SOAP: Subjective: []Patient seen and examined at bedside. She feels well and desires DC to home. Denies CP, SOB, dizziness, nausea. Goals met with PT. Objective: []General: Well appearing, NAD RLE: Right knee dressing changed by dr ocampo this morning, remains CDI with cryo unit in use. Thigh is soft, DF/PF intact, DP2+, sensation intact distally, capillary refill less than two seconds distally. Calves supple and nontender without erythema, edema or palpable cords Assessment: []POD 2 sp Right total knee arthroplasty Plan: []WBAT PT/OT Denies coumadin at home. Took aspirin after her last joint replacement and strongly desires to do so again. She denies history of DVT,PE, DM2, present or past cancer dx, hormone use. I will discharge her on ASA 325 BID for 30 days. She has been educated on signs and symptoms of DVT/PE. Resume losartan tomorrow Vital Signs Temp 97.9 F 03/22/18 07:31 Pulse 57 03/22/18 07:31 Resp 14 03/22/18 08:00 BP 130/66 03/22/18 07:31 Pulse Ox 97 03/22/18 08:00 Intake & Output 03/21/18 03/22/18 03/22/18 18:59 06:59 18:59 Intake Total 1711 1800 360 Output Total 150 450 300 Balance 1561 1350 60 Intake: IV Fluids 1231 ABX - VANCOMYCIN 260 LR 971 Oral 480 1800 360 Output: Urine 150 450 300 Other: Estimated Void Medium Small Date of Last Bowel 03/22/18 Movement # Bowel Movements 3 1 Estimated Stool Amount Medium Medium # Voids 3 1 Laboratory Last Values Hgb 11.4 g/dl (12.0-16.0) L 03/22/18 05:58 Hct 33 % (35-47) L 03/22/18 05:58 Plt Count 181 10^3/ul (150-450) 03/22/18 05:58 MPV 8.5 fL (7.4-10.4) 03/22/18 05:58 INR (Anticoag Therapy) 1.70 (0.77-1.02) H 03/22/18 05:58 Sodium 137 mmol/L (135-145) 03/21/18 06:47 Potassium 4.1 mmol/L (3.5-5.0) 03/21/18 06:47 Chloride 103 mmol/L (101-111) 03/21/18 06:47 Carbon Dioxide 29 mmol/L (22-32) 03/21/18 06:47 Anion Gap 5 mmol/L (2-11) 03/21/18 06:47 BUN 17 mg/dL (6-24) 03/21/18 06:47 Creatinine 0.77 mg/dL (0.51-0.95) 03/21/18 06:47 Est GFR ( Amer) 89.4 (>60) 03/21/18 06:47 Est GFR (Non-Af Amer) 73.9 (>60) 03/21/18 06:47 BUN/Creatinine Ratio 22.1 (8-20) H 03/21/18 06:47 Glucose 116 mg/dL (70-100) H 03/21/18 06:47 Calcium 8.6 mg/dL (8.6-10.3) 03/21/18 06:47
[2018-03-22] MEDS: Enoxaparin(*) 30 MG/0.3 ML SYR SUBCUT SCH (11:12)
[2018-03-22 11:58] VITALS: BP 129/56
--- NOTE | 2018-03-23 08:51 | DS ---
DISCHARGE SUMMARY: DATE OF ADMISSION: 03/20/18 DATE OF DISCHARGE: 03/22/18 PROVIDER: Dr. Gregoria Cardoso.* (DICTATED BY ALBIN VALENTINE) TEASELER: ALBIN Chavez PREOPERATIVE DIAGNOSIS: Severe end-stage degenerative osteoarthritis of the right knee joint. OPERATIVE PROCEDURE: Right total knee arthroplasty. HISTORY: Ms. De Guzman is a 73-year-old female with years of increasingly severe right knee pain. She failed conservative management and elected to undergo a right total knee arthroplasty. HOSPITAL COURSE: The patient was admitted to [facility] on . She underwent a right total knee arthroplasty without complication. Postop day 1, she is well appearing, in no acute distress. Dressing was clean, dry, and intact. Thigh was soft. Dorsiflexion and plantarflexion intact. DP pulse 2 +. Sensation intact distally. Postop day 2, she was again well appearing, in no acute distress. Dressing was changed by Dr. Cardoso this morning without complication. Vital Signs: Temperature 97.9, pulse 57, respiratory rate 14, blood pressure 130/66, pulse ox 97. Labs: Hemoglobin 11.4, hematocrit 33. INR 1.70. Sodium 137, potassium 4.1. Patient was seemed to be medically and orthopedically stable for discharge home. She did have consultation with our medicine team while she was here. Her losartan was held during the immediate postoperative period, but was restarted on her normal dosage upon discharge. DISCHARGE MEDICATIONS: 1. Magnesium oxide 400 mg 2 tabs p.o. b.i.d. 2. Calcium, magnesium, zinc tablet, 1 tab p.o. q.a.m. 3. Milk thistle 300 mg p.o. q.a.m. 4. CoQ10 30 mg p.o. q.a.m. 5. Cholecalciferol 2000 mg p.o. q.a.m. 6. Women's multivitamin 1 tab p.o. q.a.m. 7. Losartan 25 mg p.o. q.a.m. 8. AlgaeCal supplement 2 caps p.o. q.a.m. 9. Selenium 400 mcg p.o. q.a.m. 10. Magnesium 2 tabs p.o. b.i.d. 11. Psyllium husk 0.4 g p.o. q.a.m. p.r.n. 12. Zinc 50 mg p.o. q.a.m. 13. Vitamin K2 100 mcg p.o. q.a.m. 14. Kelp 100 mg q.a.m. New medications for home: 1. Aspirin 325 mg p.o. b.i.d. for 30 days. 2. Docusate 100 mg p.o. b.i.d. p.r.n. 3. Homer 5/325 one to two tabs every 4 to 6 hours as needed for pain, max daily dose of 10. 4. Acetaminophen 975 mg p.o. q.8 hours p.r.n. DISCHARGE PLAN: The patient will be weightbearing as tolerated. She will not need lab draws as she has refused Coumadin and she will now be on aspirin for 30 days outpatient. DVT prophylaxis is aspirin 325 every 12 hours for 30 days. Pain control with Homer 5/325, take 1 to 2 tabs by mouth every 4 to 6 hours as needed for pain, max of 10 tabs in a day. Follow up with Dr. Cardoso in 10 to 14 days. Medications sent [place] [id number]. DISCHARGE DISPOSITION: To home. ALBIN VALENTINE [id number]/[facility] #: [id number] MTDD
== END 2018-03-22 11:53 | disposition home or self-care (01) | DRG 470 ==
LOC: AA 03-20 12:30 → SSU 03-20 20:17
PROVIDERS: ADMIT Orthopaedic Surgery Adult Reconstructive Orthopaedic Surgery; ATTEND Orthopaedic Surgery Adult Reconstructive Orthopaedic Surgery
PROC: 0SRC0J9 Replacement of Right Knee Joint with Synthetic Substitute, Cemented, Open Approach (ICD-10-PCS; principal; 2018-03-20 15:00)
DX: M17.11 Unilateral primary osteoarthritis, right knee (principal); I10 Essential (primary) hypertension; Z96.652 Presence of left artificial knee joint; M25.461 Effusion, right knee; L71.9 Rosacea, unspecified; E66.3 Overweight; M47.812 Spondylosis without myelopathy or radiculopathy, cervical region; M41.9 Scoliosis, unspecified; M25.761 Osteophyte, right knee; Z88.1 Allergy status to other antibiotic agents; Z88.0 Allergy status to penicillin; Z88.6 Allergy status to analgesic agent; Z82.0 Family history of epilepsy and other diseases of the nervous system; Z72.89 Other problems related to lifestyle; Z86.12 Personal history of poliomyelitis; Z80.3 Family history of malignant neoplasm of breast; Z84.1 Family history of disorders of kidney and ureter; Z81.1 Family history of alcohol abuse and dependence; Z82.61 Family history of arthritis; Z82.49 Family history of ischemic heart disease and other diseases of the circulatory system; Z68.30 Body mass index [BMI] 30.0-30.9, adult
CPT/HCPCS: 36415; 80048; 85014; 85018; 85049; 85610; A9270-GY; C1776; G8978-GP-CI; G8979-GP-CI; G8987-GO-CJ; G8988-GO-CI; J1100; J1650; J2250; J2270; J2704; J3010; J3370